=== PATIENT | female | born 1975 ===

== ENCOUNTER 2021-06-14 08:00 | Outpatient (CLI) | payer OTHER ==
[~2021-06-14 08:00] MED LIST: ALDOMET250 MG; HYZAAR 50-12.1 UDTAB; LASIX20 MG; ULTRACET PO
== END 2021-06-14 08:05 | disposition home or self-care (01) ==
LOC: PPH VACUNA 08:00
PROVIDERS: ATTEND Emergency Medicine Pediatric Emergency Medicine
DX: Z23 Encounter for immunization (principal)

== ENCOUNTER 2021-07-05 08:00 | Outpatient (CLI) | payer OTHER | END 2021-07-05 08:30 | disposition home or self-care (01) | LOC: PPH VACUNA 08:00 | PROVIDERS: ATTEND Emergency Medicine Pediatric Emergency Medicine | DX: Z23 Encounter for immunization (principal) ==